=== PATIENT | male | born 1950 ===

== ENCOUNTER → 2024-03-08 | Outpatient (CLI) | payer OTHER ==
[~2024-03-08] MED LIST: ZADITOR5 M1 BOTHEYES
[2024-03-08 17:31] LABS: Thyroid Stimulating Hormone 1.49 uIU/mL (0.360-4.800)
== END ==
LOC: LAB SHORT 15:13
PROVIDERS: Student in an Organized Health Care Education/Training Program
DX: F01.50 Vascular dementia, unspecified severity, without behavioral disturbance, psychotic disturbance, mood disturbance, and anxiety (principal)
CPT/HCPCS: 82607; 82746; 84443; 86592